=== PATIENT | female | born 1995 | race Caucasian/White ===

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

== ENCOUNTER 2017-06-03 18:02 | Inpatient (IN) | payer MEDICAID ==
[2017-06-03] MEDS ORDERED: Nalbuphine 10 MG/1 ML Vial IVPUSH PRN (18:28)
[2017-06-03] MEDS ORDERED: Sodium Chloride 0.9% 2.5 ML Syringe FLUSH PRN (18:28)
[2017-06-03] MEDS ORDERED: Misoprostol 200 MCG Tab PO PRN (18:28)
[2017-06-03] MEDS ORDERED: Carboprost Tromethamine 250 MCG/1 ML Amp IM PRN (18:28)
[2017-06-03] MEDS ORDERED: Water For Irrigation,Sterile 1,000 ML Container IRR PRN (18:28)
[2017-06-03] MEDS ORDERED: Methylergonovine 0.2 MG/1 ML Amp IM PRN (18:28)
[2017-06-03] MEDS ORDERED: Lidocaine 1% 50 ML MDV INJECT PRN (18:28)
[2017-06-03] MEDS ORDERED: Sodium Chloride 0.9% 10 ML Syringe FLUSH PRN (18:28)
[2017-06-03] MEDS ORDERED: Butorphanol 1 MG/ML SDV IVPUSH PRN (18:28)
[2017-06-03] MEDS ORDERED: Oxytocin/Lactated Ringers 30 UNIT/500 ML BAG IV SCH (18:30)
[2017-06-04] MEDS: Lactated Ringers 1,000 ML IV SCH ×3 (01:35→08:17)
--- NOTE | 2017-06-04 01:45 | PCM.PREANE ---
Preanesthetic Assessment - Anesthesia/Transfusion/Family Hx Anesthesia History: No Prior Anesthesia Transfusion History: No Prior Transfusion(s) - Review of Systems General: No Symptoms Pulmonary: No Symptoms Cardiovascular: No Symptoms Gastrointestinal: No Symptoms Neurological: No Symptoms Other: Reports: None - Physical Assessment Height: 1.7 m Weight: 107.955 kg ASA Class: 2 Mental Status: Alert & Oriented x3 Dentition: Reports: Normal Dentition ROM/Head Extension: Full Lungs: Clear to Auscultation, Normal Respiratory Effort Cardiovascular: Regular Rate, Regular Rhythm - Lab Values: Laboratory Last Values WBC 14.05 K/uL (4.0-11.0) H 06/03/17 18:45 RBC 4.63 M/uL (4.30-5.90) 06/03/17 18:45 Hgb 12.1 g/dL (12.0-16.0) 06/03/17 18:45 Hct 37.1 % (36.0-46.0) 06/03/17 18:45 MCV 80.1 fL (80.0-98.0) 06/03/17 18:45 MCH 26.1 pg (27.0-32.0) L 06/03/17 18:45 MCHC 32.6 g/dL (31.0-37.0) 06/03/17 18:45 RDW Std Deviation 44.9 fl (28.0-62.0) 06/03/17 18:45 RDW Coeff of Sean 16 % (11.0-15.0) H 06/03/17 18:45 Plt Count 247 K/uL (150-400) 06/03/17 18:45 MPV 10.80 fL (7.40-12.00) 06/03/17 18:45 Nucleated RBC % 0.0 /100WBC 06/03/17 18:45 Nucleated RBCs # 0 K/uL 06/03/17 18:45 Blood Type O POSITIVE 06/03/17 18:45 Antibody Screen NEGATIVE 06/03/17 18:45 - Allergies Allergies/Adverse Reactions: Allergies Allergy/AdvReac Type Severity Reaction Status Date / Time sulfamethoxazole Allergy Other Verified 05/11/17 18:29 [From Bactrim] trimethoprim [From Bactrim] Allergy Other Verified 05/11/17 18:29 - Blood Blood Available: Yes - Acknowledgements Anesthesia Type Planned: Epidural Pt an Appropriate Candidate for the Planned Anesthesia: Yes Alternatives and Risks of Anesthesia Discussed w Pt/Guardian: Yes Pt/Guardian Understands and Agrees with Anesthesia Plan: Yes PreAnesthesia Questionnaire - Past Health History Medical/Surgical History: Denies Medical/Surgical History HEENT History: Reports: Impaired Vision Cardiovascular History: Reports: None Respiratory History: Reports: Asthma Gastrointestinal History: Reports: Chronic Constipation, Irritable Bowel Syndrome Genitourinary History: Reports: UTI, Recurrent EVENING OR NIGHT NURSE SUPERVISOR History: Reports: : 1 Para: 0 Neurological History: Reports: Concussion, Migraines Psychiatric History: Reports: Anxiety, Depression (ADHD, Bipolar) Endocrine/Metabolic History: Reports: None Hematologic History: Reports: None - Infectious Disease History Infectious Disease History: Reports: Chicken Pox, Other (See Below) Other Infectious Disease History: hospitalized as a [age] year old for unkown strain of hepatitis - SUBSTANCE USE Smoking Status *Q: Never Smoker Second Hand Smoke Exposure: No Days Per Week of Alcohol Use: 0 Recreational Drug Use History: No - HOME MEDS Home Medications: Home Meds Albuterol Sulfate [Albuterol Sulfate HFA] 1 - 2 puff INH ASDIRECTED PRN [History] #103/Iron Fumarate/Fa [ ] 1 mg PO DAILY 12/19/16 [ History] Ranitidine [Zantac] 150 mg PO BID 05/11/17 [History] valACYclovir HCl [Valtrex] 1 tab PO DAILY 05/11/17 [History] - CURRENT (IN HOUSE) MEDS Current Meds: Current Medications Butorphanol Tartrate (Stadol) 1 mg IVPUSH Q1H PRN PRN Reason: Pain Last Admin: 06/04/17 00:43 Dose: 1 mg Carboprost Tromethamine (Hemabate Ds) 250 mcg IM ASDIRECTED PRN PRN Reason: Post Hemorrhage Lactated Ringer's (Ringers, Lactated) 1,000 mls @ 150 mls/hr IV ASDIRECTED ARNAV Last Admin: 06/04/17 01:35 Dose: 999 mls/hr Lidocaine HCl (Xylocaine 1%) 50 ml INJECT .ONCE PRN PRN Reason: Laceration repair Methylergonovine Maleate (Methergine) 0.2 mg IM ASDIRECTED PRN PRN Reason: Post Hemorrhage Misoprostol (Cytotec) 200 mcg PO .ONCE PRN PRN Reason: Post Hemorrhage Nalbuphine HCl (Nubain) 10 mg IVPUSH Q1H PRN PRN Reason: Pain (severe 7-10) Sodium Chloride (Saline Flush) 10 ml FLUSH ASDIRECTED PRN PRN Reason: Keep Vein Open Sodium Chloride (Saline Flush) 2.5 ml FLUSH ASDIRECTED PRN PRN Reason: Keep Vein Open Sterile Water (Sterile Water For Irrigation) 1,000 ml IRR ASDIRECTED PRN PRN Reason: delivery Discontinued Medications Oxytocin/Lactated Ringer's (Pitocin In Lr 30 Units/500 Ml) 30 unit in 500 mls @ 999 mls/hr IV TITRATE ARNAV; 999 MUNITS/MIN PRN Reason: Protocol Stop: 06/03/17 19:01
[2017-06-04] MEDS ORDERED: Ropivacaine HCl/PF 100 ML ONE ×2 (01:46→11:27)
[2017-06-04] MEDS ORDERED: fentaNYL 100 MCG/2 ML SDV ONE (01:46)
[2017-06-04] MEDS ORDERED: Terbutaline 1 MG/ML SDV SUBCUT PRN (02:21)
[2017-06-04] MEDS ORDERED: Oxytocin/Lactated Ringers 30 UNIT/500 ML BAG IV SCH (02:30)
[2017-06-04] MEDS: Ondansetron 4 MG/2 ML SDV IVPUSH PRN ×2 (08:18→12:33)
[2017-06-04] MEDS ORDERED: Albuterol 8 GM Inhaler INH PRN (13:20)
[2017-06-04] MEDS ORDERED: Acetaminophen 500 MG Tab PO PRN ×2 (14:52)
[2017-06-04] MEDS ORDERED: Ibuprofen 800 MG Tab PO PRN (14:52)
[2017-06-04] MEDS ORDERED: Bisacodyl 10 MG Supp RECTAL PRN (14:52)
[2017-06-04] MEDS ORDERED: Docusate Sodium 100 MG Cap PO PRN (14:52)
[2017-06-04] MEDS ORDERED: Ibuprofen 400 MG Tab PO PRN (14:52)
[2017-06-04] MEDS ORDERED: Witch Hazel Medicated Pads 40/Jar TOP PRN (14:52)
[2017-06-04] MEDS ORDERED: Benzocaine/Menthol 20%-0.5% Spray 78 GM Cannister TOP PRN (14:52)
[2017-06-04] MEDS ORDERED: Lanolin 100% Cream 7 GM Tube TOP PRN (14:52)
[2017-06-04] MEDS ORDERED: oxyCODONE 5 MG Tab PO PRN (14:52)
--- NOTE | 2017-06-05 00:07 | OR ---
SURGEON: Sade Miles MD DATE OF PROCEDURE: 06/04/2017 PREOPERATIVE DIAGNOSES: 1. Term at 38 weeks' and 4 days. 2. Premature rupture of membranes. 3. Polyhydramnios. POSTOPERATIVE DIAGNOSES: 1. Term at 38 weeks' and 4 days. 2. Premature rupture of membranes. 3. Polyhydramnios. 4. Delivered. PROCEDURES: 1. Induction of labor for premature rupture of membranes. 2. Spontaneous vaginal delivery. 3. Repair of second-degree perineal laceration. ANESTHESIA: Epidural. ESTIMATED BLOOD LOSS: 300 mL. DISPOSITION: Mother and baby stable in Labor and Delivery Room, bonding. FINDINGS: Female, weight 3750 g, score 3 and 8 at 1 and 5 minutes respectively. Grossly normal placenta with 3-vessel cord. Second-degree perineal laceration. Shoulder dystocia delivered with Kanika maneuver. BRIEF HISTORY: Keisha is a 22-year-old primigravida, who presented to Labor and Delivery at 1800hours on the 03 of June at 38 weeks' and 3 days gestation with a history of leakage of fluid, clear since 1730 hours. She reported having regular contractions, but denied vaginal bleeding and reported good movements. GBS status was negative. The patient's course was complicated with idiopathic polyhydramnios and surveillance has remained reassuring. On admission, she was found to be 2 cm dilated, 80% effaced, station -3. She was arturo irregularly and with a Category 1 tracing, she was allowed to ambulate. She was reexamined 4 hours later and found not to have made any cervical change. The patient reported at that time that her intensity of the contractions were increasing and she would like to wait another 2 hours to be reexamined to ascertain iff there was any cervical change within that interval. Two hours later when she was re-examined, she still had made any no cervical change and induction of labor was commenced with Oxytocin infusion. She requested and received epidural for pain management and made adequate progress. At a maximum of 14 milliunits per minute, she became fully dilated at about 11 a.m. and started complaining of increasing rectal pressure with a strong urge to push. She commenced active pushing at about 11:30 and after pushing for a little over 2 hours, she brought the baby's head down to a +4 station and was set up for delivery in modified dorsal lithotomy position. heart tracing although with high baseline of 160s, remained a category of 1 tracing. The patient remained afebrile throughout the intrapartum period. 30 minutes prior to delivery, the heart rate went up to 180s, CAT 2, consistent with uncomplicated tachycardia. DESCRIPTION OF PROCEDURE: She had a spontaneous vaginal delivery of a live female in direct occipital anterior position, clear fluid noted at delivery. Upon delivery of the infant's head, turtle sign was noted, and with restitution, spontaneous delivery of the infant's shoulders was not achieved. At this stage, the patient was placed in a supine position the head and she was placed in Kanika position. This enabled delivery of the anterior shoulder followed by the posterior shoulder, followed by the rest of the 's body. No nuchal cord was noted. The baby was delivered onto the maternal abdomen in the presence of the attendant nursery nurse. The baby was noted to have poor respiratory effort and tone. The cord was double clamped and cut and the infant was swiftly transferred to the resuscitator. Dr Scott, tail worker manager utilization review was closed. With delivery of the , oxytocin infusion was changed to titration rate for active management of the third stage of labor. Cord blood and gas samples were obtained. The placenta was delivered by controlled cord traction appeared to be complete and intact. Examination of the perineum revealed a second-degree laceration at 5 o'clock position. This was repaired with 2-0 Vicryl sutures in 3 layers. On re-examination of the perineum, there was a right labial laceration that was bleeding, this was reapproximated with 3-0 Vicryl suture. Both repairs were hemostatic. Uterine massage was performed. The fundus of the uterus was contracted, but on bimanual examination, clots were evacuated from the lower uterine segment, which remained boggy. Continued bimanual massage was performed vigorously and a dose of Methergine 0.2 mg was given IM. With these measures, the uterus contracted nicely and the bleeding reduced. The patient tolerated the procedure well. Sponge, instrument, and needle counts were correct. The infant transitioned well and was noted to be moving both arms. ADUMVIV / MODL /[id number] WALTER
--- NOTE | 2017-06-05 06:35 | PCM.PNPP ---
- General Info Date of Service: 06/05/17 Functional Status: Reports: Pain Controlled, Tolerating Diet, Ambulating, Urinating - Review of Systems General: Denies: Fever, Fatigue, Malaise, Chills Pulmonary: Denies: Shortness of Breath, Pleuritic Chest Pain, Cough Cardiovascular: Denies: Chest Pain, Palpitations, Dyspnea on Exertion Gastrointestinal: Denies: Abdominal Pain Genitourinary: Denies: Dysuria, Incontinence Neurological: Denies: Dizziness, Headache Psychiatric: Denies: Depression - General Info Date of Service: 06/05/17 - Patient Data Vital Signs - Most Recent: Last Vital Signs Temp 36.5 C 06/04/17 20:00 Pulse 93 06/04/17 20:00 Resp 18 06/04/17 20:00 BP 138/79 06/04/17 20:00 Pulse Ox 98 06/04/17 20:00 Weight - Most Recent: 238 lb Lab Results - Last 24 Hours: Laboratory Results - last 24 hr 06/05/17 Range/Units 04:50 Hgb 10.3 L (12.0-16.0) g/dL Hct 31.8 L (36.0-46.0) % Med Orders - Current: Current Medications Acetaminophen (Tylenol Extra Strength) 500 mg PO Q4H PRN PRN Reason: Pain Acetaminophen (Tylenol Extra Strength) 1,000 mg PO Q4H PRN PRN Reason: Pain Benzocaine/Menthol (Dermoplast Pain Relief 20%-0.5% [place]) 78 gm TOP ASDIRECTED PRN PRN Reason: Perineal Comfort Measure Last Admin: 06/04/17 17:52 Dose: 1 can Bisacodyl (Dulcolax) 10 mg RECTAL .ONCE PRN PRN Reason: Constipation Docusate Sodium (Colace) 100 mg PO BID PRN PRN Reason: Constipation Emollient Ointment (Lansinoh Hpa) 0 gm TOP ASDIRECTED PRN PRN Reason: Sore Nipples Ibuprofen (Motrin) 400 mg PO Q4H PRN PRN Reason: Pain Ibuprofen (Motrin) 800 mg PO Q6H PRN PRN Reason: Pain Last Admin: 06/04/17 17:53 Dose: 800 mg Oxycodone HCl (Oxycodone) 5 mg PO Q2H PRN PRN Reason: Pain Witch Lyssa (Tucks) 1 pad TOP ASDIRECTED PRN PRN Reason: comfort care Last Admin: 06/04/17 17:53 Dose: 1 tub Discontinued Medications Albuterol (Ventolin Hfa) 8 gm INH Q6H PRN PRN Reason: Other Butorphanol Tartrate (Stadol) 1 mg IVPUSH Q1H PRN PRN Reason: Pain Last Admin: 06/04/17 00:43 Dose: 1 mg Carboprost Tromethamine (Hemabate Ds) 250 mcg IM ASDIRECTED PRN PRN Reason: Post Hemorrhage Fentanyl (Sublimaze) Confirm Administered Dose 100 mcg .ROUTE .[employer] ONE Stop: 06/04/17 01:47 Lactated Ringer's (Ringers, Lactated) 1,000 mls @ 150 mls/hr IV ASDIRECTED ARNAV Last Admin: 06/04/17 08:17 Dose: 150 mls/hr Oxytocin/Lactated Ringer's (Pitocin In Lr 30 Units/500 Ml) 30 unit in 500 mls @ 999 mls/hr IV TITRATE ARNAV; 999 MUNITS/MIN PRN Reason: Protocol Stop: 06/03/17 19:01 Last Admin: 06/04/17 14:54 Dose: 150 munits/min, 150 mls/hr Ropivacaine (Naropin 0.2%) Confirm Administered Dose 100 mls @ as directed .ROUTE .[employer] ONE Stop: 06/04/17 01:47 Oxytocin/Lactated Ringer's (Pitocin In Lr 30 Units/500 Ml) 30 unit in 500 mls @ 2 mls/hr IV TITRATE ARNAV; 2 MUNITS/MIN PRN Reason: Protocol Last Titration: 06/04/17 06:50 Dose: 14 munits/min, 14 mls/hr Ropivacaine (Naropin 0.2%) Confirm Administered Dose 100 mls @ as directed .ROUTE .[employer] ONE Stop: 06/04/17 11:28 Lidocaine HCl (Xylocaine 1%) 50 ml INJECT .ONCE PRN PRN Reason: Laceration repair Methylergonovine Maleate (Methergine) 0.2 mg IM ASDIRECTED PRN PRN Reason: Post Hemorrhage Last Admin: 06/04/17 14:55 Dose: 0.2 mg Misoprostol (Cytotec) 200 mcg PO .ONCE PRN PRN Reason: Post Hemorrhage Nalbuphine HCl (Nubain) 10 mg IVPUSH Q1H PRN PRN Reason: Pain (severe 7-10) Ondansetron HCl (Zofran) 4 mg IVPUSH Q6H PRN PRN Reason: Nausea/Vomiting Last Admin: 06/04/17 12:33 Dose: 4 mg Sodium Chloride (Saline Flush) 10 ml FLUSH ASDIRECTED PRN PRN Reason: Keep Vein Open Sodium Chloride (Saline Flush) 2.5 ml FLUSH ASDIRECTED PRN PRN Reason: Keep Vein Open Sterile Water (Sterile Water For Irrigation) 1,000 ml IRR ASDIRECTED PRN PRN Reason: delivery Last Admin: 06/04/17 13:44 Dose: 1,000 ml Terbutaline Sulfate (Brethine) 0.25 mg SUBCUT ASDIRECTED PRN PRN Reason: Tacysystole - Infant Interaction Disposition, : at Bedside Interaction: Holding Feeding: Bottle Fed Infant Support Person: Mother, Significant Other - Recovery Exam Fundal Tone: Firm Fundal Level: 1 Fingerbreadths Below Umbilicus Fundal Placement: Midline Lochia Amount: Scant Lochia Color: Rubra/Red Episiotomy/Laceration: Approximated Bladder Status: Nonpalpable, Voiding Urinary Elimination: Voided - Exam General: Alert, Oriented HEENT: Pupils Equal Lungs: Clear to Auscultation, Normal Respiratory Effort Cardiovascular: Regular Rate, Regular Rhythm GI/Abdominal Exam: Soft, Non-Tender Extremities: Pedal Edema Skin: Warm Psy/Mental Status: Alert, Normal Affect, Normal Mood - Problem List & Annotations (1) Vaginal delivery SNOMED Code(s): 909800909 Code(s): O80 - ENCOUNTER FOR FULL-TERM UNCOMPLICATED DELIVERY Status: Acute Current Visit: Yes - Problem List Review Problem List Initiated/Reviewed/Updated: Yes - My Orders Last 24 Hours: My Active Orders 06/04/17 13:26 RT Post Treatment Assessment [RC] Click to Edit RT Pre-Treatment Assessment [RC] Click to Edit 06/04/17 14:52 Patient Status [ADT] Routine May Shower [RC] ASDIRECTED Up ad Laura [RC] ASDIRECTED Vital Signs [RC] PER UNIT ROUTINE Acetaminophen [Tylenol Extra Strength] 1,000 mg PO Q4H PRN Acetaminophen [Tylenol Extra Strength] 500 mg PO Q4H PRN Benzocaine/Menthol [Dermoplast Pain Relief 20%-0.5% [place]] 78 gm TOP ASDIRECTED PRN Bisacodyl [Dulcolax] 10 mg RECTAL .ONCE PRN Docusate Sodium [Colace] 100 mg PO BID PRN Ibuprofen [Motrin] 400 mg PO Q4H PRN Ibuprofen [Motrin] 800 mg PO Q6H PRN Lanolin [Lansinoh HPA] See Dose Instructions TOP ASDIRECTED PRN Witch Lyssa [Tucks] 1 pad TOP ASDIRECTED PRN oxyCODONE 5 mg PO Q2H PRN Assess Lochia [WOMSER] Per Unit Routine Assess Uterine Involution [WOMSER] Per Unit Routine Breast Pump [WOMSER] Per Unit Routine Peripheral IV Discontinue [OM.PC] Routine Resuscitation Status Routine 06/04/17 14:53 Perineal Care [OM.PC] Per Unit Routine 06/04/17 Dinner Regular Diet [DIET] - Assessment Assessment:: PPD#1 s/p , stable and afebrile - Plan Plan:: Patient may be discharged home today if baby is discharged by peds Discharge instructions were given Bleeding and infection precaution reviewed Nothing in the vagina for 6 weeks Continue PNV for 4 weeks Will restart Celexa for history of depression- discussed and reviewed S/S of worsening condition Follow up in 6 weeks
[2017-06-05] MEDS ORDERED: Hydrocortisone 2.5% Crm 30 GM Tube TOP PRN (15:35)
[2017-06-05] MEDS ORDERED: Lidocaine 2% Jelly 30 ML Tube MUCMEM SCH (15:45)
[2017-06-05 19:04] VITALS: BP 139/86
== END 2017-06-05 17:27 | disposition home or self-care (01) | DRG 775 ==
LOC: MW.OB 18:02 → MW.OBCHECK 18:02 → MW.OB 18:17 → MW.OBCHECK 18:17 → OBSVTOIN 06-04 13:44 → MW.OB 06-04 17:49
PROVIDERS: ADMIT Obstetrics & Gynecology; ATTEND Obstetrics & Gynecology
PROC: 10E0XZZ Delivery of Products of Conception, External Approach (ICD-10-PCS; principal; 2017-06-04)
PROC: 0KQM0ZZ Repair Perineum Muscle, Open Approach (ICD-10-PCS; 2017-06-04)
PROC: 3E033VJ Introduction of Other Hormone into Peripheral Vein, Percutaneous Approach (ICD-10-PCS; 2017-06-04)
DX: O42.02 Full-term premature rupture of membranes, onset of labor within 24 hours of rupture (principal); O40.3XX0 Polyhydramnios, third trimester, not applicable or unspecified; O70.1 Second degree perineal laceration during delivery; O66.0 Obstructed labor due to shoulder dystocia; Z3A.38 38 weeks gestation of pregnancy; Z37.0 Single live birth
CPT/HCPCS: 36415; 51703; 59025; 85014; 85018; 85027; 86850; 86900; 86901; 88307; A9270-GY; J0595; J2210; J2405; J2795; J3010; J7120

== ENCOUNTER 2017-08-21 14:49 | Emergency (ER) | payer MEDICAID ==
[2017-08-21] MEDS ORDERED: Sodium Chloride 0.9% 2.5 ML Syringe FLUSH PRN (15:42)
[2017-08-21] MEDS ORDERED: Sodium Chloride 0.9% 1,000 ML IV ONE (15:42)
[2017-08-21] MEDS ORDERED: Ondansetron 4 MG/2 ML SDV IVPUSH ONE (15:42)
[2017-08-21] MEDS ORDERED: Pantoprazole 40 MG in Sodium Chloride 0.9% 10 ML IVPUSH ONE (15:42)
[2017-08-21] MEDS ORDERED: Sodium Chloride 0.9% 10 ML Syringe FLUSH PRN (15:42)
[2017-08-21] MEDS ORDERED: Morphine 2 MG/ML Syringe IVPUSH ONE (15:43)
--- NOTE | 2017-08-21 15:47 | EDM.PDOC ---
ED HPI GENERAL MEDICAL PROBLEM - General Chief Complaint: Abdominal Pain Stated Complaint: ABD PAIN Time Seen by Provider: 08/21/17 15:06 - History of Present Illness INITIAL COMMENTS - FREE TEXT/NARRATIVE: HISTORY AND PHYSICAL: History of present illness: The patient is a 22-year-old female with a 2-1/2 month history of episodic epigastric and upper abdominal pain since she had her baby, which is not breast- feeding, and presents with complaints of right upper quadrant epigastric pain that started today after eating echo and she is. Patient says that she has eaten fatty foods over the last 2 days and it is triggered the pain associated with nausea but no vomiting. She did have one very loose stool today but that is not been characteristic. She has not had black or bloody stools and has had no fever chills chest pain or shortness of breath. Patient says she has an appointment with a provider at [facility] tomorrow to discuss these symptoms but the pain was severe and she thought she should be evaluated today. She's never had an ultrasound or any abdominal workup with the symptoms. Patient also says that she has a long-standing history of heartburn and burping has never had that evaluated either. The patient says that since she has arrived here the pain has improved significantly but she still has nausea. Patient says she last ate the macaroni and cheese approximately an hour and a half ago Review of systems: As per history of present illness and below otherwise all systems reviewed and negative. Past medical history: As per history of present illness and as reviewed below otherwise noncontributory. Surgical history: As per history of present illness and as reviewed below otherwise noncontributory. Social history: No reported history of drug or alcohol abuse. Family history: As per history of present illness and as reviewed below otherwise noncontributory. Physical exam: Gen.: Well-developed well-nourished overweight female who is nontoxic and vital signs been reviewed by me. HEENT: Atraumatic, normocephalic, negative for conjunctival pallor or scleral icterus, mucous membranes moist, throat clear, neck supple, nontender, trachea midline. Lungs: Clear to auscultation, breath sounds equal bilaterally, chest nontender. Heart: S1S2, regular, negative for clicks, rubs, or JVD. Abdomen: Soft, nondistended, nontender. On palpation I really don't elicit much tenderness throughout the abdomen except for some mild discomfort in the epigastrium. There are no masses no rebound no guarding and bowel sounds are hypoactive. There is no tympany on percussion. Negative for masses or hepatosplenomegaly. Negative for costovertebral tenderness. Pelvis: Stable nontender. Genitourinary: Deferred. Rectal: Deferred. Extremities: Atraumatic, negative for cords or calf pain. Neurovascular unremarkable. Neuro: Awake, alert, oriented. Cranial nerves II through XII unremarkable. Cerebellum unremarkable. Motor and sensory unremarkable throughout. Exam nonfocal. Diagnostics: CBC CMP amylase lipase UA UCG CT scan of the abdomen and pelvis I discussed with the patient that ultrasound would not be useful as she just ate an hour and a half ago and the gallbladder will be contracted Therapeutics: IV fluids Protonix Zofran morphine--- these note that the patient did not have a ride home so we canceled the morphine order Patient is aware of all testing results and the need to a low-fat diet and keep her appointment tomorrow at [facility] for referral. I advised her to try to get a referral for a surgery consult as soon as possible so that she can electively have her gallbladder removed. I will give her a small amount of tramadol to use for pain and advised her on reasons to return to the ED Impression: Biliary colic Definitive disposition and diagnosis as appropriate pending reevaluation and review of above. upper abdominal pain Pain Score (Numeric/FACES): 9 - Related Data Allergies Allergy/AdvReac Type Severity Reaction Status Date / Time dipti Allergy Other Verified 08/21/17 15:13 sulfamethoxazole Allergy Other Verified 08/21/17 15:13 [From Bactrim] trimethoprim [From Bactrim] Allergy Other Verified 08/21/17 15:13 Home Meds: Home Meds Citalopram Hydrobromide [Celexa] 40 mg PO DAILY 08/21/17 [History] Past Medical History - Past Health History Medical/Surgical History: Denies Medical/Surgical History HEENT History: Reports: Impaired Vision Cardiovascular History: Reports: None Respiratory History: Reports: Asthma Gastrointestinal History: Reports: Chronic Constipation, Irritable Bowel Syndrome Genitourinary History: Reports: UTI, Recurrent 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: Neurological History: Reports: Concussion, Migraines Psychiatric History: Reports: Anxiety, Depression Endocrine/Metabolic History: Reports: None Hematologic History: Reports: None - Infectious Disease History Infectious Disease History: Reports: Chicken Pox, Other (See Below) Other Infectious Disease History: hospitalized as a [age] year old for unkown strain of hepatitis Social & Family History - Family History Family Medical History: Noncontributory Cardiac: Reports: Hypertension, [place], Stent : Reports: Diabetic Nephropathy Neurological: Reports: CVA, Neuropathy, Diabetic Psychiatric: Reports: ADD, ADHD, Anxiety, Bipolar, Depression, Emotional Problems, Learning Disability, Mood Swings, Panic Attack Endocrine/Metabolic: Reports: Diabetes, Type I Oncologic: Reports: Colon, Leukemia - Tobacco Use Smoking Status *Q: Never Smoker Second Hand Smoke Exposure: No - Caffeine Use Caffeine Use: Reports: Energy Drinks, Soda - Alcohol Use Days Per Week of Alcohol Use: 0 - Recreational Drug Use Recreational Drug Use: No ED ROS GENERAL - Review of Systems Review Of Systems: ROS reveals no pertinent complaints other than HPI. ED EXAM, GENERAL - Physical Exam Exam: See Below (See dictation) Course - Vital Signs Last Recorded V/S: Last Vital Signs Temp 36.7 C 08/21/17 15:13 Pulse 78 08/21/17 15:13 Resp 18 08/21/17 15:13 BP 152/101 H 08/21/17 15:13 Pulse Ox 99 08/21/17 15:13 - Orders/Labs/Meds Orders: Active Orders 24 hr Category Date Time Status Abdomen Pelvis w Cont [CT] Stat Exams 08/21/17 15:42 Taken Sodium Chloride 0.9% [Saline Flush] Med 08/21/17 15:42 Active 10 ml FLUSH ASDIRECTED PRN Sodium Chloride 0.9% [Saline Flush] Med 08/21/17 15:42 Active 2.5 ml FLUSH ASDIRECTED PRN Saline Lock Insert [OM.PC] Stat Oth 08/21/17 15:41 Ordered Medication Orders Sodium Chloride (Saline Flush) 10 ml FLUSH ASDIRECTED PRN PRN Reason: Keep Vein Open Last Admin: 08/21/17 16:13 Dose: 10 ml Sodium Chloride (Saline Flush) 2.5 ml FLUSH ASDIRECTED PRN PRN Reason: Keep Vein Open Last Admin: 08/21/17 16:14 Dose: 2.5 ml Labs: Laboratory Tests 08/21/17 08/21/17 08/21/17 Range/Units 15:48 15:48 16:36 WBC 6.80 (4.0-11.0) K/uL RBC 4.42 (4.30-5.90) M/uL Hgb 11.0 L (12.0-16.0) g/dL Hct 35.3 L (36.0-46.0) % MCV 79.9 L (80.0-98.0) fL MCH 24.9 L (27.0-32.0) pg MCHC 31.2 (31.0-37.0) g/dL RDW Std Deviation 45.7 (28.0-62.0) fl RDW Coeff of Sean 16 H (11.0-15.0) % Plt Count 236 (150-400) K/uL MPV 9.80 (7.40-12.00) fL Neut % (Auto) 70.3 (48.0-80.0) % Lymph % (Auto) 21.8 (16.0-40.0) % [place] % (Auto) 6.0 (0.0-15.0) % Eos % (Auto) 1.5 (0.0-7.0) % Baso % (Auto) 0.4 (0.0-1.5) % Neut # (Auto) 4.8 (1.4-5.7) K/uL Lymph # (Auto) 1.5 (0.6-2.4) K/uL [place] # (Auto) 0.4 (0.0-0.8) K/uL Eos # (Auto) 0.1 (0.0-0.7) K/uL Baso # (Auto) 0.0 (0.0-0.1) K/uL Nucleated RBC % 0.0 /100WBC Nucleated RBCs # 0 K/uL Sodium 141 (136-146) mmol/L Potassium 3.6 (3.5-5.1) mmol/L Chloride 110 (98-110) mmol/L Carbon Dioxide 23 (21-31) mmol/L BUN 11 (6.0-23.0) mg/dL Creatinine 0.7 (0.6-1.5) mg/dL Est Cr Clr Drug Dosing 129.32 mL/min Estimated GFR (MDRD) > 60.0 ml/min Glucose 139 H (60-110) mg/dL Calcium 8.7 L (8.8-10.8) mg/dL Total Bilirubin 0.3 (0.1-1.5) mg/dL AST 31 (5-40) IU/L ALT 54 (8-54) IU/L Alkaline Phosphatase 91 (40-150) Total Protein 6.8 (6.0-8.0) g/dL Albumin 3.9 (3.5-5.0) g/dL Globulin 2.9 (2.0-3.5) g/dL Albumin/Globulin Ratio 1.3 (1.3-2.8) Amylase 34 (10-90) U/L Lipase 29 (7-80) U/L Urine Color Urine Appearance Urine pH (5.0-8.0) Ur Specific [place] (1.001-1.035) Urine Protein (NEGATIVE) mg/dL Urine Glucose (UA) (NEGATIVE) mg/dL Urine Ketones (NEGATIVE) mg/dL Urine Occult Blood (NEGATIVE) Urine Nitrite (NEGATIVE) Urine Bilirubin (NEGATIVE) Urine Urobilinogen (<2.0) EU/dL Ur Leukocyte Esterase (NEGATIVE) Urine RBC (0-2/HPF) Urine WBC (0-5/HPF) Ur Epithelial Cells (NONE-FEW) Amorphous Sediment (NEGATIVE) Urine Bacteria (NEGATIVE) Urine Mucus (NONE-MOD) Urine HCG, Qual NEGATIVE (NEGATIVE) 08/21/17 Range/Units 16:36 WBC (4.0-11.0) K/uL RBC (4.30-5.90) M/uL Hgb (12.0-16.0) g/dL Hct (36.0-46.0) % MCV (80.0-98.0) fL MCH (27.0-32.0) pg MCHC (31.0-37.0) g/dL RDW Std Deviation (28.0-62.0) fl RDW Coeff of Sean (11.0-15.0) % Plt Count (150-400) K/uL MPV (7.40-12.00) fL Neut % (Auto) (48.0-80.0) % Lymph % (Auto) (16.0-40.0) % [place] % (Auto) (0.0-15.0) % Eos % (Auto) (0.0-7.0) % Baso % (Auto) (0.0-1.5) % Neut # (Auto) (1.4-5.7) K/uL Lymph # (Auto) (0.6-2.4) K/uL [place] # (Auto) (0.0-0.8) K/uL Eos # (Auto) (0.0-0.7) K/uL Baso # (Auto) (0.0-0.1) K/uL Nucleated RBC % /100WBC Nucleated RBCs # K/uL Sodium (136-146) mmol/L Potassium (3.5-5.1) mmol/L Chloride (98-110) mmol/L Carbon Dioxide (21-31) mmol/L BUN (6.0-23.0) mg/dL Creatinine (0.6-1.5) mg/dL Est Cr Clr Drug Dosing mL/min Estimated GFR (MDRD) ml/min Glucose (60-110) mg/dL Calcium (8.8-10.8) mg/dL Total Bilirubin (0.1-1.5) mg/dL AST (5-40) IU/L ALT (8-54) IU/L Alkaline Phosphatase (40-150) Total Protein (6.0-8.0) g/dL Albumin (3.5-5.0) g/dL Globulin (2.0-3.5) g/dL Albumin/Globulin Ratio (1.3-2.8) Amylase (10-90) U/L Lipase (7-80) U/L Urine Color YELLOW Urine Appearance SLT CLOUDY Urine pH 7.0 (5.0-8.0) Ur Specific [place] 1.025 (1.001-1.035) Urine Protein NEGATIVE (NEGATIVE) mg/dL Urine Glucose (UA) NEGATIVE (NEGATIVE) mg/dL Urine Ketones NEGATIVE (NEGATIVE) mg/dL Urine Occult Blood TRACE-INTACT (NEGATIVE) Urine Nitrite NEGATIVE (NEGATIVE) Urine Bilirubin NEGATIVE (NEGATIVE) Urine Urobilinogen 0.2 (<2.0) EU/dL Ur Leukocyte Esterase NEGATIVE (NEGATIVE) Urine RBC 2-4 (0-2/HPF) Urine WBC 2-3 (0-5/HPF) Ur Epithelial Cells FEW (NONE-FEW) Amorphous Sediment LIGHT (NEGATIVE) Urine Bacteria 1+ H (NEGATIVE) Urine Mucus HEAVY (NONE-MOD) Urine HCG, Qual (NEGATIVE) Meds: Medications Generic Name Dose Route Start Last Admin Trade Name Freq PRN Reason Stop Dose Admin Sodium Chloride 10 ml 08/21/17 15:42 08/21/17 16:13 Saline Flush FLUSH 10 ml ASDIRECTED PRN Administration Keep Vein Open Sodium Chloride 2.5 ml 08/21/17 15:42 08/21/17 16:14 Saline Flush FLUSH 2.5 ml ASDIRECTED PRN Administration Keep Vein Open Discontinued Medications Generic Name Dose Route Start Last Admin Trade Name Freq PRN Reason Stop Dose Admin Pantoprazole Sodium 40 mg/ 10 mls @ 300 mls/hr 08/21/17 15:42 08/21/17 16:13 Sodium Chloride IVPUSH 08/21/17 15:43 300 mls/hr NOW ONE Administration Sodium Chloride 1,000 mls @ 999 mls/hr 08/21/17 15:42 08/21/17 16:13 Normal Saline IV 08/21/17 16:42 999 mls/hr STAT ONE Administration Iopamidol 90 ml 08/21/17 16:51 08/21/17 16:52 Isovue Multipack-370 (76%) IVPUSH 08/21/17 16:52 90 ml ONETIME STA Administration Morphine Sulfate 2 mg 08/21/17 15:43 08/21/17 16:14 Morphine IVPUSH 08/21/17 15:44 Not Given ONETIME ONE Ondansetron HCl 4 mg 08/21/17 15:42 08/21/17 16:13 Zofran IVPUSH 08/21/17 15:43 4 mg ONETIME ONE Administration Departure - Departure Time of Disposition: 18:22 Disposition: Home, Self-Care 01 Condition: Good Clinical Impression: Biliary colic - Discharge Information Referrals: Zonia Kwok DO [Primary Care Provider] - Forms: ED Department Discharge Additional Instructions: The following information is given to patients seen in the emergency department who are being discharged to home. This information is to outline your options for follow-up care. We provide all patients seen in our emergency department with a follow-up referral. The need for follow-up, as well as the timing and circumstances, are variable depending upon the specifics of your emergency department visit. If you don't have a primary care physician on staff, we will provide you with a referral. We always advise you to contact your personal physician following an emergency department visit to inform them of the circumstance of the visit and for follow-up with them and/or the need for any referrals to a consulting specialist. The emergency department will also refer you to a specialist when appropriate. This referral assures that you have the opportunity for followup care with a specialist. All of these measure are taken in an effort to provide you with optimal care, which includes your followup. Under all circumstances we always encourage you to contact your private physician who remains a resource for coordinating your care. When calling for followup care, please make the office aware that this follow-up is from your recent emergency room visit. If for any reason you are refused follow-up, please contact the [facility] emergency department at and ask to speak to the emergency department charge nurse. [address] [place] [address] [facility] [address] [place] [phone] Please keep your appointment as scheduled tomorrow with Dr. Kwok in the clinic and also call our surgery clinic for follow-up as you choose. Please eat a low-fat diet as we discussed push hydration and only use the pain medications prescribed if the pain is not treated with [id number] meds. You've been given tramadol [facility]. Return to ER as needed and as discussed - My Orders Last 24 Hours: My Active Orders 08/21/17 15:41 Saline Lock Insert [OM.PC] Stat 08/21/17 15:42 Abdomen Pelvis w Cont [CT] Stat Sodium Chloride 0.9% [Saline Flush] 10 ml FLUSH ASDIRECTED PRN Sodium Chloride 0.9% [Saline Flush] 2.5 ml FLUSH ASDIRECTED PRN - Assessment/Plan Last 24 Hours: My Active Orders 08/21/17 15:41 Saline Lock Insert [OM.PC] Stat 08/21/17 15:42 Abdomen Pelvis w Cont [CT] Stat Sodium Chloride 0.9% [Saline Flush] 10 ml FLUSH ASDIRECTED PRN Sodium Chloride 0.9% [Saline Flush] 2.5 ml FLUSH ASDIRECTED PRN
[2017-08-21 16:19] LABS: CHLORIDE,CL 110 mmol/L (98-110); SODIUM,NA 141 mmol/L (136-146)
[2017-08-21] MEDS ORDERED: Iopamidol 755 MG/ML 500 ML Multipack Bottle IVPUSH STA (16:51)
[2017-08-21 18:46] VITALS: BP 121/79
--- NOTE | 2017-08-22 16:17 | CT ---
EXAM DATE: 08/21/17 PATIENT'S AGE: 22 Patient: TASIA PALM Facility: [place], [place] Site . Site : 1995 Study: CT Abdomen/Pelvis [id number]/12/2017 5:12:29 PM Ordering Physician: Angel Clayton Final Report: INDICATION: Right-sided abdominal pain for 2 months. Pain is worse today. Technique: CT abdomen and pelvis performed after IV injection of contrast. Findings: Linear atelectasis in the left lung base. Trace amount of pericardial fluid. Slight increased density in the dependent aspect the gallbladder could be related to stone debris and/or sludge. Mild diffuse fatty infiltration of the liver. Small cyst right lower kidney. Appendix is normal. Small cysts or follicles in both ovaries. Few scattered colonic diverticula. Remainder negative. Impression: 1. No acute disease in abdomen or pelvis. 2. Small amount of sludge or stone debris in the dependent aspect of the gallbladder. Other findings as above. Please note that all CT scans at this facility use dose modulation, iterative reconstruction, and/or weight-based dosing when appropriate to reduce radiation dose to as low as reasonably achievable. Dictated by Julio Garces MD @ Aug 21 2017 5:37PM (Electronic Signature) Report Signed by Proxy. WALTER
== END 2017-08-21 18:42 | disposition home or self-care (01) ==
LOC: MW.ED 14:49
DX: K80.50 Calculus of bile duct without cholangitis or cholecystitis without obstruction (principal); Z88.2 Allergy status to sulfonamides; Z88.1 Allergy status to other antibiotic agents
CPT/HCPCS: 36415; 74177; 80053; 81001; 81025; 82150; 83690; 85025; 96361; 96374; 96375; 99284; C9113; J2405; J7040; Q9967; 99283

== ENCOUNTER 2017-09-21 16:05 | Emergency (ER) | payer MEDICAID ==
[2017-09-21] MEDS ORDERED: Ondansetron 4 MG/2 ML SDV IVPUSH ONE (16:44)
[2017-09-21] MEDS ORDERED: Sodium Chloride 0.9% 1,000 ML IV ONE (16:44)
[2017-09-21] MEDS ORDERED: Morphine 4 MG/ML Syringe IVPUSH ONE (16:44)
--- NOTE | 2017-09-21 16:50 | EDM.PDOC ---
ED HPI GENERAL MEDICAL PROBLEM - General Chief Complaint: Gastrointestinal Problem Stated Complaint: abdominal pain Time Seen by Provider: 09/21/17 16:25 Source of Information: Reports: Patient History Limitations: Reports: No Limitations - History of Present Illness INITIAL COMMENTS - FREE TEXT/NARRATIVE: HISTORY AND PHYSICAL: History of present illness: Patient is a 22-year-old female who presents to the emergency room with complaints of right upper abdominal pain, nausea, vomiting, and diarrhea. She states she has been having this abdominal pain on and off for approximately 3 months, since giving to her daughter. She was seen in the emergency room approximately 3 weeks ago and diagnosed a "bad gallbladder". At that time she was prescribed tramadol and given a follow-up appointment with Dr. Reed in [place]. She did see Dr. Monique approximately 2 weeks ago and is scheduled to have her gallbladder removed in October. She has chosen to wait to have the surgery as she does not have help at home with her . States today she took her tramadol and did not have any pain relief. Proceeded to take some Aleve, also did not have any comfort. She had leftover Zofran from her which has not alleviated any of her nausea. Patient had a vaginal delivery approximately 3 months ago, no complications. Is not breast-feeding. Currently on the Depakote shot for prevention. Unsure of last menstrual period due to this. Review of systems: As per history of present illness and below otherwise all systems reviewed and negative. Past medical history: As per history of present illness and as reviewed below otherwise noncontributory. Surgical history: As per history of present illness and as reviewed below otherwise noncontributory. Social history: No reported history of drug or alcohol abuse. Family history: As per history of present illness and as reviewed below otherwise noncontributory. Physical exam: Gen.: Well-developed and well-nourished 22-year-old female. Appears in no acute distress and is nontoxic appearing. Alert and oriented. HEENT: Atraumatic, normocephalic, pupils reactive, negative for conjunctival pallor or scleral icterus, mucous membranes moist, throat clear, neck supple, nontender, trachea midline. Lungs: Clear to auscultation, breath sounds equal bilaterally, chest nontender. Heart: S1S2, regular rate and rhythm no overt murmurs Abdomen: Soft, nondistended, generalized tenderness in all 4 quadrants-worse in the right upper quadrant. Negative for masses or hepatosplenomegaly. Negative for costovertebral tenderness. Pelvis: Stable nontender. Genitourinary: Deferred. Rectal: Deferred. Extremities: Atraumatic, ambulatory, moves all extremities per self, full range of motion. Patient is negative for cords or calf pain. Neurovascular unremarkable. Neuro: Awake, alert, oriented. Cranial nerves II through XII unremarkable. Cerebellum unremarkable. Motor and sensory unremarkable throughout. Exam nonfocal. The patient states that this pain is not a new pain. Is consistent with the gallbladder "attacks" that she has been having for the past several weeks. We did discuss repeating imaging, both the patient and myself decided that this is not necessary at this time. I will repeat labs to make sure there is nothing further going on. Patient is requesting IV fluids as she states she has been vomiting throughout the day. Will provide IV hydration and give pain management and nausea medication. Labs were reviewed with the patient. We did discuss that she needs to follow-up with her general surgeon for further management of her cholecystitis. I will give her a limited amount of [place] 02/09/25, one tab every 4-6 hours as needed. As she is taking care of the infant at home we did discuss when to use this medication. It is her narcotic and can make her drowsy she is aware that she needs to take this when someone is able to help care for the child. Zofran has been prescribed as well that she can take for nausea. She will expedite her appointment with her general surgeon in [place]. Denies any further questions at this time. Diagnostics: CBC, CMP, amylase, lipase, UA, urine Therapeutics: IV fluid, Zofran, morphine Impression: 1. You may continue to take her tramadol as needed. A prescription for [place] has been prescribed for you. This is a narcotic and will make you drowsy. Do not take this medication when needing to care for your small , driving, or functioning at work. Zofran has also been prescribed to help with the nausea. 2. Will and diet as tolerated. Please avoid any of your trigger foods that may cause her gallbladder to flare. 3. Please call your general surgeon to expedite your follow-up appointment. 4. Return to the ED as needed and as discussed. Plan: [] Definitive disposition and diagnosis as appropriate pending reevaluation and review of above. Onset: Other (An ongoing for 3 months, worse today.) Location: Reports: Abdomen Associated Symptoms: Reports: Nausea/Vomiting, Other (Diarrhea) right upper quad Pain Score (Numeric/FACES): 6 - Related Data Allergies Allergy/AdvReac Type Severity Reaction Status Date / Time dipti Allergy Other Verified 09/21/17 17:05 sulfamethoxazole Allergy Other Verified 09/21/17 17:05 [From Bactrim] trimethoprim [From Bactrim] Allergy Other Verified 09/21/17 17:05 Home Meds: Home Meds Citalopram Hydrobromide [Celexa] 40 mg PO DAILY 08/21/17 [History] Past Medical History - Past Health History Medical/Surgical History: Denies Medical/Surgical History HEENT History: Reports: Impaired Vision Cardiovascular History: Reports: None Respiratory History: Reports: Asthma Gastrointestinal History: Reports: Chronic Constipation, Irritable Bowel Syndrome Genitourinary History: Reports: UTI, Recurrent [employer] History: Reports: Neurological History: Reports: Concussion, Migraines Psychiatric History: Reports: Anxiety, Depression Endocrine/Metabolic History: Reports: None Hematologic History: Reports: None - Infectious Disease History Infectious Disease History: Reports: Chicken Pox, Other (See Below) Other Infectious Disease History: hospitalized as a [age] year old for unkown strain of hepatitis Social & Family History - Family History Family Medical History: Noncontributory Cardiac: Reports: Hypertension, [place], Stent : Reports: Diabetic Nephropathy Neurological: Reports: CVA, Neuropathy, Diabetic Psychiatric: Reports: ADD, ADHD, Anxiety, Bipolar, Depression, Emotional Problems, Learning Disability, Mood Swings, Panic Attack Endocrine/Metabolic: Reports: Diabetes, Type I Oncologic: Reports: Colon, Leukemia - Tobacco Use Smoking Status *Q: Never Smoker Second Hand Smoke Exposure: No - Caffeine Use Caffeine Use: Reports: Energy Drinks, Soda - Alcohol Use Days Per Week of Alcohol Use: 0 - Recreational Drug Use Recreational Drug Use: No ED ROS GENERAL - Review of Systems Review Of Systems: ROS reveals no pertinent complaints other than HPI. ED EXAM, GI/ABD - Physical Exam Exam: See Below (See dictation) Course - Vital Signs Last Recorded V/S: Last Vital Signs Temp 98.0 F 09/21/17 17:05 Pulse 100 09/21/17 17:05 Resp 18 09/21/17 17:05 BP 125/83 09/21/17 17:05 Pulse Ox 97 09/21/17 17:05 - Orders/Labs/Meds Labs: Laboratory Tests 09/21/17 09/21/17 09/21/17 Range/Units 16:57 16:57 18:17 WBC 10.15 (4.0-11.0) K/uL RBC 5.17 (4.30-5.90) M/uL Hgb 13.0 (12.0-16.0) g/dL Hct 40.8 (36.0-46.0) % MCV 78.9 L (80.0-98.0) fL MCH 25.1 L (27.0-32.0) pg MCHC 31.9 (31.0-37.0) g/dL RDW Std Deviation 43.5 (28.0-62.0) fl RDW Coeff of Sean 15 (11.0-15.0) % Plt Count 253 (150-400) K/uL MPV 10.50 (7.40-12.00) fL Neut % (Auto) 86.3 H (48.0-80.0) % Lymph % (Auto) 6.2 L (16.0-40.0) % Cavalier % (Auto) 7.3 (0.0-15.0) % Eos % (Auto) 0.1 (0.0-7.0) % Baso % (Auto) 0.1 (0.0-1.5) % Neut # (Auto) 8.8 H (1.4-5.7) K/uL Lymph # (Auto) 0.6 (0.6-2.4) K/uL Cavalier # (Auto) 0.7 (0.0-0.8) K/uL Eos # (Auto) 0.0 (0.0-0.7) K/uL Baso # (Auto) 0.0 (0.0-0.1) K/uL Nucleated RBC % 0.0 /100WBC Nucleated RBCs # 0 K/uL Sodium 142 (136-146) mmol/L Potassium 3.4 L (3.5-5.1) mmol/L Chloride 108 (98-110) mmol/L Carbon Dioxide 22 (21-31) mmol/L BUN 15 (6.0-23.0) mg/dL Creatinine 0.9 (0.6-1.5) mg/dL Est Cr Clr Drug Dosing 100.58 mL/min Estimated GFR (MDRD) > 60.0 ml/min Glucose 122 H (60-110) mg/dL Calcium 9.2 (8.8-10.8) mg/dL Total Bilirubin 0.8 (0.1-1.5) mg/dL AST 29 (5-40) IU/L ALT 59 H (8-54) IU/L Alkaline Phosphatase 90 (40-150) Total Protein 8.1 H (6.0-8.0) g/dL Albumin 4.4 (3.5-5.0) g/dL Globulin 3.7 H (2.0-3.5) g/dL Albumin/Globulin Ratio 1.2 L (1.3-2.8) Amylase 26 (10-90) U/L Lipase 14 (7-80) U/L Urine Color Urine Appearance Urine pH (5.0-8.0) Ur Specific Erie (1.001-1.035) Urine Protein (NEGATIVE) mg/dL Urine Glucose (UA) (NEGATIVE) mg/dL Urine Ketones (NEGATIVE) mg/dL Urine Occult Blood (NEGATIVE) Urine Nitrite (NEGATIVE) Urine Bilirubin (NEGATIVE) Urine Urobilinogen (<2.0) EU/dL Ur Leukocyte Esterase (NEGATIVE) Urine RBC (0-2/HPF) Urine WBC (0-5/HPF) Ur Epithelial Cells (NONE-FEW) Amorphous Sediment (NEGATIVE) Urine Bacteria (NEGATIVE) Urine HCG, Qual NEGATIVE (NEGATIVE) 09/21/17 Range/Units 18:17 WBC (4.0-11.0) K/uL RBC (4.30-5.90) M/uL Hgb (12.0-16.0) g/dL Hct (36.0-46.0) % MCV (80.0-98.0) fL MCH (27.0-32.0) pg MCHC (31.0-37.0) g/dL RDW Std Deviation (28.0-62.0) fl RDW Coeff of Sean (11.0-15.0) % Plt Count (150-400) K/uL MPV (7.40-12.00) fL Neut % (Auto) (48.0-80.0) % Lymph % (Auto) (16.0-40.0) % Cavalier % (Auto) (0.0-15.0) % Eos % (Auto) (0.0-7.0) % Baso % (Auto) (0.0-1.5) % Neut # (Auto) (1.4-5.7) K/uL Lymph # (Auto) (0.6-2.4) K/uL Cavalier # (Auto) (0.0-0.8) K/uL Eos # (Auto) (0.0-0.7) K/uL Baso # (Auto) (0.0-0.1) K/uL Nucleated RBC % /100WBC Nucleated RBCs # K/uL Sodium (136-146) mmol/L Potassium (3.5-5.1) mmol/L Chloride (98-110) mmol/L Carbon Dioxide (21-31) mmol/L BUN (6.0-23.0) mg/dL Creatinine (0.6-1.5) mg/dL Est Cr Clr Drug Dosing mL/min Estimated GFR (MDRD) ml/min Glucose (60-110) mg/dL Calcium (8.8-10.8) mg/dL Total Bilirubin (0.1-1.5) mg/dL AST (5-40) IU/L ALT (8-54) IU/L Alkaline Phosphatase (40-150) Total Protein (6.0-8.0) g/dL Albumin (3.5-5.0) g/dL Globulin (2.0-3.5) g/dL Albumin/Globulin Ratio (1.3-2.8) Amylase (10-90) U/L Lipase (7-80) U/L Urine Color YELLOW Urine Appearance CLEAR Urine pH 5.5 (5.0-8.0) Ur Specific Erie 1.020 (1.001-1.035) Urine Protein NEGATIVE (NEGATIVE) mg/dL Urine Glucose (UA) NEGATIVE (NEGATIVE) mg/dL Urine Ketones NEGATIVE (NEGATIVE) mg/dL Urine Occult Blood TRACE-LYSED (NEGATIVE) Urine Nitrite NEGATIVE (NEGATIVE) Urine Bilirubin NEGATIVE (NEGATIVE) Urine Urobilinogen 0.2 (<2.0) EU/dL Ur Leukocyte Esterase NEGATIVE (NEGATIVE) Urine RBC 1-2 (0-2/HPF) Urine WBC 0-1 (0-5/HPF) Ur Epithelial Cells FEW (NONE-FEW) Amorphous Sediment FEW (NEGATIVE) Urine Bacteria RARE (NEGATIVE) Urine HCG, Qual (NEGATIVE) Meds: Medications Discontinued Medications Generic Name Dose Route Start Last Admin Trade Name Janq PRN Reason Stop Dose Admin Sodium Chloride 1,000 mls @ 999 mls/hr 09/21/17 16:44 09/21/17 16:59 Normal Saline IV 09/21/17 17:44 999 mls/hr STAT ONE Administration Morphine Sulfate 4 mg 09/21/17 16:44 09/21/17 16:59 Morphine IVPUSH 09/21/17 16:45 4 mg ONETIME ONE Administration Ondansetron HCl 4 mg 09/21/17 16:44 09/21/17 16:59 Zofran IVPUSH 09/21/17 16:45 4 mg ONETIME ONE Administration Potassium Chloride 10 meq 09/21/17 18:11 09/21/17 18:38 Klor-Con 10 PO 09/21/17 18:12 Not Given ONETIME ONE Potassium Chloride 10 meq 09/21/17 18:37 09/21/17 18:41 Klor-Con M20 PO 09/21/17 18:38 10 meq ONETIME ONE Administration Promethazine HCl 25 mg 09/21/17 18:47 09/21/17 19:05 Phenergan IM 09/21/17 18:48 25 mg ONETIME ONE Administration Departure - Departure Time of Disposition: 19:19 Disposition: Home, Self-Care 01 Clinical Impression: History of cholecystitis Abdominal pain Qualifiers: Abdominal location: right upper quadrant Qualified Code(s): R10.11 - Right upper quadrant pain - Discharge Information Referrals: Zonia Kwok DO [Primary Care Provider] - Forms: ED Department Discharge Additional Instructions: My general discharge The following information is given to patients seen in the emergency department who are being discharged to home. This information is to outline your options for follow-up care. We provide all patients seen in our emergency department with a follow-up referral. The need for follow-up, as well as the timing and circumstances, are variable depending upon the specifics of your emergency department visit. If you don't have a primary care physician on staff, we will provide you with a referral. We always advise you to contact your personal physician following an emergency department visit to inform them of the circumstance of the visit and for follow-up with them and/or the need for any referrals to a consulting specialist. The emergency department will also refer you to a specialist when appropriate. This referral assures that you have the opportunity for follow-up care with a specialist. All of these measure are taken in an effort to provide you with optimal care, which includes your follow-up. Under all circumstances we always encourage you to contact your private physician who remains a resource for coordinating your care. When calling for follow-up care, please make the office aware that this follow-up is from your recent emergency room visit. If for any reason you are refused follow-up, please contact the [facility] Emergency Department at and asked to speak to the emergency department charge nurse. [facility] - General Surgery Professional Building [address] [place] [address], [address] [place] [address] 1. You may continue to take her tramadol as needed. A prescription for [place] has been prescribed for you. This is a narcotic and will make you drowsy. Do not take this medication when needing to care for your small , driving, or functioning at work. Zofran has also been prescribed to help with the nausea. 2. Will and diet as tolerated. Please avoid any of your trigger foods that may cause her gallbladder to flare. 3. Please call your general surgeon to expedite your follow-up appointment. 4. Return to the ED as needed and as discussed.
[2017-09-21 17:32] LABS: CHLORIDE,CL 108 mmol/L (98-110); SODIUM,NA 142 mmol/L (136-146)
[2017-09-21] MEDS ORDERED: Potassium Chloride 10 MEQ Tab.ER PO ONE (18:11)
[2017-09-21] MEDS ORDERED: Potassium Chloride 20 MEQ Tab.ER PO ONE (18:37)
[2017-09-21] MEDS ORDERED: Promethazine 25 MG/ML SDV IM ONE (18:47)
[2017-09-21 19:42] VITALS: BP 130/88
== END 2017-09-21 19:40 | disposition home or self-care (01) ==
LOC: MW.ED 16:05
DX: R10.11 Right upper quadrant pain (principal); Z88.2 Allergy status to sulfonamides; Z88.1 Allergy status to other antibiotic agents; Z79.899 Other long term (current) drug therapy; Z87.19 Personal history of other diseases of the digestive system; Z91.018 Allergy to other foods
CPT/HCPCS: 36415; 80053; 81001; 81025; 82150; 83690; 85025; 96361; 96372; 96374; 96375; 99284; A9270; J2270; J2405; J2550; J7040

== ENCOUNTER 2018-03-27 20:07 | Emergency (ER) | payer BC, MEDICAID ==
[2018-03-27] MEDS ORDERED: Ketorolac 30 MG/ML SDV IVPUSH ONE (20:11)
[2018-03-27] MEDS ORDERED: Ondansetron 4 MG/2 ML SDV IVPUSH ONE (20:11)
[2018-03-27] MEDS ORDERED: Sodium Chloride 0.9% 1,000 ML IV ONE (20:11)
--- NOTE | 2018-03-27 20:24 | EDM.PDOC ---
ED HPI GENERAL MEDICAL PROBLEM - General Chief Complaint: Abdominal Pain Stated Complaint: GALLBLADDER ATTACK Time Seen by Provider: 03/27/18 20:10 Source of Information: Reports: Patient History Limitations: Reports: No Limitations - History of Present Illness INITIAL COMMENTS - FREE TEXT/NARRATIVE: HISTORY AND PHYSICAL: History of present illness: Patient is a 23-year-old female who presents to the emergency room today with complaints of right upper quadrant pain, nausea and vomiting 2 days. She states she has a history of "bad gallbladder" which she was scheduled to have surgery in September 2017. She has been seen in our emergency room previous for similar complaints. Reports she has had surgery scheduled, but events occurred which caused her to have to cancel. Review of systems: As per history of present illness and below otherwise all systems reviewed and negative. Past medical history: As per history of present illness and as reviewed below otherwise noncontributory. Surgical history: As per history of present illness and as reviewed below otherwise noncontributory. Social history: No reported history of drug or alcohol abuse. Family history: As per history of present illness and as reviewed below otherwise noncontributory. Physical exam: General: Well-developed and well-nourished 23-year-old female. Alert and oriented. Nontoxic appearing and in no acute distress. HEENT: Atraumatic, normocephalic, pupils equal and reactive bilaterally, negative for conjunctival pallor or scleral icterus, mucous membranes moist, throat clear, neck supple, nontender, trachea midline. No drooling or trismus noted. No meningeal signs Lungs: Clear to auscultation, breath sounds equal bilaterally, chest nontender. Heart: S1S2, regular rate and rhythm without overt murmur Abdomen: Soft, nondistended, right upper quadrant tenderness. Negative for masses or hepatosplenomegaly. Negative for costovertebral tenderness. Pelvis: Stable nontender. Genitourinary: Deferred. Rectal: Deferred. Skin: Intact, warm, dry. No lesions or rashes noted. Extremities: Atraumatic, negative for cords or calf pain. Neurovascular unremarkable. Neuro: Awake, alert, oriented. Cranial nerves II through XII unremarkable. Cerebellum unremarkable. Motor and sensory unremarkable throughout. Exam nonfocal. Notes: Patient states that this abdominal pain is not new, although she has not had a "attack" in the past several months. She is agreeable to doing lab work at this time. She declines a CT of the abdomen and pelvis at this time. IV fluids, Toradol and Zofran will be given until lab results have returned. Labs were reviewed with the patient. We did discuss that she needs to follow-up with her general surgeon for further evaluation and management of cold a cystitis. I will give her a limited amount of [place] one tab every 4-6 hours as needed. Encouraged her to use the Zofran as needed for nausea. Medication education was discussed as she should not take this medication while driving or needing to be functioning outside of the house are caring for her child. Referral will be placed into the general surgeon for follow-up. Patient is aware of care plan and is agreeable. She denies any further questions or concerns at this time. Diagnostics: CBC, CMP, amylase, lipase, UA, urine Therapeutics: IV fluid, Zofran, Toradol Impression: Right upper quadrant pain Plan: 1. Please avoid high fat, processed foods, refined carbs, and tobacco/alcohol. 2. Tylenol and/or ibuprofen as needed for pain management. Workup as needed for moderate to severe pain. This medication may cause drowsiness so do not take it will driving her needing to be functioning outside of the house. Please do not take this medication when caring for your infant child. 3. Referral to have you follow up with the general surgeon has been made (need to set up/schedule surgery). Please see them or your PCP in the next 1-2 days. Return to the ED as needed as discussed. Definitive disposition and diagnosis as appropriate pending reevaluation and review of above. Onset: Today Duration: Day(s):, Chronic Location: Reports: Abdomen Abdomen Pain Score (Numeric/FACES): 8 - Related Data Allergies Allergy/AdvReac Type Severity Reaction Status Date / Time dipti Allergy Other Verified 09/21/17 17:05 sulfamethoxazole Allergy Other Verified 09/21/17 17:05 [From Bactrim] trimethoprim [From Bactrim] Allergy Other Verified 09/21/17 17:05 Home Meds: Home Meds Vilazodone Hydrochloride [Viibryd] 20 mg PO DAILY 03/27/18 [History] Past Medical History - Past Health History Medical/Surgical History: Denies Medical/Surgical History HEENT History: Reports: Impaired Vision Cardiovascular History: Reports: None Respiratory History: Reports: Asthma Gastrointestinal History: Reports: Chronic Constipation, Irritable Bowel Syndrome Genitourinary History: Reports: UTI, Recurrent 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: Neurological History: Reports: Concussion, Migraines Psychiatric History: Reports: Anxiety, Depression Endocrine/Metabolic History: Reports: None Hematologic History: Reports: None - Infectious Disease History Infectious Disease History: Reports: Chicken Pox, Other (See Below) Other Infectious Disease History: hospitalized as a [age] year old for unkown strain of hepatitis Social & Family History - Family History Family Medical History: Noncontributory Cardiac: Reports: Hypertension, [place], Stent : Reports: Diabetic Nephropathy Neurological: Reports: CVA, Neuropathy, Diabetic Psychiatric: Reports: ADD, ADHD, Anxiety, Bipolar, Depression, Emotional Problems, Learning Disability, Mood Swings, Panic Attack Endocrine/Metabolic: Reports: Diabetes, Type I Oncologic: Reports: Colon, Leukemia - Caffeine Use Caffeine Use: Reports: Energy Drinks, Soda ED ROS GENERAL - Review of Systems Review Of Systems: ROS reveals no pertinent complaints other than HPI. ED EXAM, GI/ABD - Physical Exam Exam: See Below (See dictation) Course - Vital Signs Last Recorded V/S: Last Vital Signs Temp 97.8 F 03/27/18 20:32 Pulse 109 H 03/27/18 20:32 Resp 16 03/27/18 20:32 BP 121/82 03/27/18 20:32 Pulse Ox 97 03/27/18 20:32 - Orders/Labs/Meds Orders: Active Orders 24 hr Category Date Time Status HCG QUALITATIVE,URINE [URCHEM] Stat Lab 03/27/18 20:37 Ordered UA W/MICROSCOPIC [URIN] Stat Lab 03/27/18 20:37 Ordered Labs: Laboratory Tests 03/27/18 03/27/18 03/27/18 Range/Units 20:37 20:37 20:43 WBC 11.74 H (4.0-11.0) K/uL RBC 5.10 (4.30-5.90) M/uL Hgb 12.5 (12.0-16.0) g/dL Hct 39.3 (36.0-46.0) % MCV 77.1 L (80.0-98.0) fL MCH 24.5 L (27.0-32.0) pg MCHC 31.8 (31.0-37.0) g/dL RDW Std Deviation 42.4 (28.0-62.0) fl RDW Coeff of Sean 15 (11.0-15.0) % Plt Count 262 (150-400) K/uL MPV 10.10 (7.40-12.00) fL Neut % (Auto) 83.3 H (48.0-80.0) % Lymph % (Auto) 10.7 L (16.0-40.0) % [place] % (Auto) 5.5 (0.0-15.0) % Eos % (Auto) 0.3 (0.0-7.0) % Baso % (Auto) 0.2 (0.0-1.5) % Neut # (Auto) 9.8 H (1.4-5.7) K/uL Lymph # (Auto) 1.3 (0.6-2.4) K/uL [place] # (Auto) 0.6 (0.0-0.8) K/uL Eos # (Auto) 0.0 (0.0-0.7) K/uL Baso # (Auto) 0.0 (0.0-0.1) K/uL Nucleated RBC % 0.0 /100WBC Nucleated RBCs # 0 K/uL Sodium (136-145) mmol/L Potassium (3.5-5.1) mmol/L Chloride (98-107) mmol/L Carbon Dioxide (21.0-32.0) mmol/L BUN (7.0-18.0) mg/dL Creatinine (0.6-1.0) mg/dL Est Cr Clr Drug Dosing mL/min Estimated GFR (MDRD) ml/min Glucose (74-106) mg/dL Calcium (8.5-10.1) mg/dL Total Bilirubin (0.2-1.0) mg/dL AST (15-37) IU/L ALT (14-63) IU/L Alkaline Phosphatase (46-116) U/L Total Protein (6.4-8.2) g/dL Albumin (3.4-5.0) g/dL Globulin (2.0-3.5) g/dL Albumin/Globulin Ratio (1.3-2.8) Amylase (25-115) U/L Lipase (73-393) U/L Urine Color YELLOW Urine Appearance CLEAR Urine pH 6.0 (5.0-8.0) Ur Specific [place] >= 1.030 (1.001-1.035) Urine Protein NEGATIVE (NEGATIVE) mg/dL Urine Glucose (UA) NEGATIVE (NEGATIVE) mg/dL Urine Ketones NEGATIVE (NEGATIVE) mg/dL Urine Occult Blood LARGE H (NEGATIVE) Urine Nitrite NEGATIVE (NEGATIVE) Urine Bilirubin NEGATIVE (NEGATIVE) Urine Urobilinogen 0.2 (<2.0) EU/dL Ur Leukocyte Esterase NEGATIVE (NEGATIVE) Urine RBC 3-5 (0-2/HPF) Urine WBC 0-1 (0-5/HPF) Ur Epithelial Cells RARE (NONE-FEW) Urine Bacteria RARE (NEGATIVE) Urine HCG, Qual NEGATIVE (NEGATIVE) 03/27/18 Range/Units 20:43 WBC (4.0-11.0) K/uL RBC (4.30-5.90) M/uL Hgb (12.0-16.0) g/dL Hct (36.0-46.0) % MCV (80.0-98.0) fL MCH (27.0-32.0) pg MCHC (31.0-37.0) g/dL RDW Std Deviation (28.0-62.0) fl RDW Coeff of Sean (11.0-15.0) % Plt Count (150-400) K/uL MPV (7.40-12.00) fL Neut % (Auto) (48.0-80.0) % Lymph % (Auto) (16.0-40.0) % [place] % (Auto) (0.0-15.0) % Eos % (Auto) (0.0-7.0) % Baso % (Auto) (0.0-1.5) % Neut # (Auto) (1.4-5.7) K/uL Lymph # (Auto) (0.6-2.4) K/uL [place] # (Auto) (0.0-0.8) K/uL Eos # (Auto) (0.0-0.7) K/uL Baso # (Auto) (0.0-0.1) K/uL Nucleated RBC % /100WBC Nucleated RBCs # K/uL Sodium 141 (136-145) mmol/L Potassium 3.8 (3.5-5.1) mmol/L Chloride 105 (98-107) mmol/L Carbon Dioxide 24.4 (21.0-32.0) mmol/L BUN 12 (7.0-18.0) mg/dL Creatinine 0.9 (0.6-1.0) mg/dL Est Cr Clr Drug Dosing 99.74 mL/min Estimated GFR (MDRD) > 60.0 ml/min Glucose 115 H (74-106) mg/dL Calcium 8.8 (8.5-10.1) mg/dL Total Bilirubin 0.6 (0.2-1.0) mg/dL AST 16 (15-37) IU/L ALT 33 (14-63) IU/L Alkaline Phosphatase 98 (46-116) U/L Total Protein 7.5 (6.4-8.2) g/dL Albumin 3.9 (3.4-5.0) g/dL Globulin 3.6 H (2.0-3.5) g/dL Albumin/Globulin Ratio 1.1 L (1.3-2.8) Amylase 28 (25-115) U/L Lipase 66 L (73-393) U/L Urine Color Urine Appearance Urine pH (5.0-8.0) Ur Specific [place] (1.001-1.035) Urine Protein (NEGATIVE) mg/dL Urine Glucose (UA) (NEGATIVE) mg/dL Urine Ketones (NEGATIVE) mg/dL Urine Occult Blood (NEGATIVE) Urine Nitrite (NEGATIVE) Urine Bilirubin (NEGATIVE) Urine Urobilinogen (<2.0) EU/dL Ur Leukocyte Esterase (NEGATIVE) Urine RBC (0-2/HPF) Urine WBC (0-5/HPF) Ur Epithelial Cells (NONE-FEW) Urine Bacteria (NEGATIVE) Urine HCG, Qual (NEGATIVE) Meds: Medications Discontinued Medications Generic Name Dose Route Start Last Admin Trade Name Freq PRN Reason Stop Dose Admin Sodium Chloride 1,000 mls @ 999 mls/hr 03/27/18 20:11 03/27/18 20:51 Normal Saline IV 03/27/18 21:11 999 mls/hr STAT ONE Administration Ketorolac Tromethamine 30 mg 03/27/18 20:11 03/27/18 20:54 Toradol IVPUSH 03/27/18 20:12 30 mg ONETIME ONE Administration Ondansetron HCl 4 mg 03/27/18 20:11 03/27/18 20:51 Zofran IVPUSH 03/27/18 20:12 4 mg ONETIME ONE Administration Departure - Departure Time of Disposition: 21:30 Disposition: Home, Self-Care 01 Clinical Impression: Right upper quadrant pain - Discharge Information Referrals: PCP,None [Primary Care Provider] - Forms: ED Department Discharge Additional Instructions: The following information is given to patients seen in the emergency department who are being discharged to home. This information is to outline your options for follow-up care. We provide all patients seen in our emergency department with a follow-up referral. The need for follow-up, as well as the timing and circumstances, are variable depending upon the specifics of your emergency department visit. If you don't have a primary care physician on staff, we will provide you with a referral. We always advise you to contact your personal physician following an emergency department visit to inform them of the circumstance of the visit and for follow-up with them and/or the need for any referrals to a consulting specialist. The emergency department will also refer you to a specialist when appropriate. This referral assures that you have the opportunity for follow-up care with a specialist. All of these measure are taken in an effort to provide you with optimal care, which includes your follow-up. Under all circumstances we always encourage you to contact your private physician who remains a resource for coordinating your care. When calling for follow-up care, please make the office aware that this follow-up is from your recent emergency room visit. If for any reason you are refused follow-up, please contact the [facility] Emergency Department at and asked to speak to the emergency department charge nurse. [facility] [address] [place] [id number] 1. Please avoid high fat, processed foods, refined carbs, and tobacco/alcohol. 2. Tylenol and/or ibuprofen as needed for pain management. Workup as needed for moderate to severe pain. This medication may cause drowsiness so do not take it will driving her needing to be functioning outside of the house. Please do not take this medication when caring for your child. 3. Referral to have you follow up with the general surgeon has been made (need to set up/schedule surgery). Please see them or your PCP in the next 1-2 days. Return to the ED as needed as discussed. - My Orders Last 24 Hours: My Active Orders 03/27/18 20:37 HCG QUALITATIVE,URINE [URCHEM] Stat UA W/MICROSCOPIC [URIN] Stat - Assessment/Plan Last 24 Hours: My Active Orders 03/27/18 20:37 HCG QUALITATIVE,URINE [URCHEM] Stat UA W/MICROSCOPIC [URIN] Stat
[2018-03-27 21:22] LABS: CHLORIDE,CL 105 mmol/L (98-107); SODIUM,NA 141 mmol/L (136-145)
[2018-03-27 21:49] VITALS: BP 110/44
== END 2018-03-27 21:46 | disposition home or self-care (01) ==
LOC: MW.ED 20:07
DX: R10.11 Right upper quadrant pain (principal); Z91.018 Allergy to other foods; Z88.2 Allergy status to sulfonamides; Z79.899 Other long term (current) drug therapy
CPT/HCPCS: 80053; 81001; 81025; 82150; 83690; 85025; 96361; 96374; 96375; 99284; J1885; J2405; J7040; 99283

== ENCOUNTER 2018-07-02 00:13 | Emergency (ER) | payer BC, MEDICAID ==
[2018-07-02] MEDS ORDERED: Sodium Chloride 0.9% 1,000 ML IV ONE (00:28)
[2018-07-02] MEDS ORDERED: Ondansetron 4 MG/2 ML SDV IVPUSH ONE (00:28)
[2018-07-02] MEDS ORDERED: Ketorolac 30 MG/ML SDV IVPUSH ONE (00:28)
--- NOTE | 2018-07-02 00:34 | EDM.PDOC ---
ED HPI GENERAL MEDICAL PROBLEM - General Chief Complaint: Abdominal Pain Stated Complaint: GALLBLADDER PAIN Time Seen by Provider: 07/02/18 00:28 - History of Present Illness INITIAL COMMENTS - FREE TEXT/NARRATIVE: HISTORY AND PHYSICAL: History of present illness: Patient is 23-year-old white female with history of biliary colic presents with a concern of upper abdominal pain. She is a trouble scheduling gallbladder surgery but is still working on that there's been no vomiting fever chills or other complaints. Review of systems: As per history of present illness and below otherwise all systems reviewed and negative. Past medical history: As per history of present illness and as reviewed below otherwise noncontributory. Surgical history: As per history of present illness and as reviewed below otherwise noncontributory. Social history: No reported history of drug or alcohol abuse. Family history: As per history of present illness and as reviewed below otherwise noncontributory. Physical exam: HEENT: Atraumatic, normocephalic, pupils reactive, negative for conjunctival pallor or scleral icterus, mucous membranes moist, throat clear, neck supple, nontender, trachea midline. Lungs: Clear to auscultation, breath sounds equal bilaterally, chest nontender. Heart: S1S2, regular, negative for clicks, rubs, or JVD. Abdomen: Soft, nondistended, no localized tenderness no rebound no guarding. Negative for masses or hepatosplenomegaly. Negative for costovertebral tenderness. Pelvis: Stable nontender. Genitourinary: Deferred. Rectal: Deferred. Extremities: Atraumatic, negative for cords or calf pain. Neurovascular unremarkable. Neuro: Awake, alert, oriented. Cranial nerves II through XII unremarkable. Cerebellum unremarkable. Motor and sensory unremarkable throughout. Exam nonfocal. Diagnostics: CBC CMP lipase hCG Therapeutics: Saline 1 L bolus Toradol 30 mg IV Zofran 4 mg IV Impression: #1 biliary colic Definitive disposition and diagnosis as appropriate pending reevaluation and review of above. - Related Data Allergies Allergy/AdvReac Type Severity Reaction Status Date / Time dipti Allergy Other Verified 07/02/18 00:30 sulfamethoxazole Allergy Other Verified 07/02/18 00:30 [From Bactrim] trimethoprim [From Bactrim] Allergy Other Verified 07/02/18 00:30 Home Meds: Home Meds Vilazodone Hydrochloride [Viibryd] 20 mg PO DAILY 06/18/18 [History] Pantoprazole [ProTONIX] 40 mg PO DAILY 07/02/18 [History] Past Medical History - Past Health History Medical/Surgical History: Denies Medical/Surgical History HEENT History: Reports: Impaired Vision Cardiovascular History: Reports: None Respiratory History: Reports: Asthma Gastrointestinal History: Reports: Chronic Constipation, Irritable Bowel Syndrome Genitourinary History: Reports: UTI, Recurrent 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: Neurological History: Reports: Concussion, Migraines Psychiatric History: Reports: Anxiety, Depression Endocrine/Metabolic History: Reports: None Hematologic History: Reports: None - Infectious Disease History Infectious Disease History: Reports: Chicken Pox, Other (See Below) Other Infectious Disease History: hospitalized as a [age] year old for unkown strain of hepatitis Social & Family History - Family History Family Medical History: Noncontributory Cardiac: Reports: Hypertension, [place], Stent : Reports: Diabetic Nephropathy Neurological: Reports: CVA, Neuropathy, Diabetic Psychiatric: Reports: ADD, ADHD, Anxiety, Bipolar, Depression, Emotional Problems, Learning Disability, Mood Swings, Panic Attack Endocrine/Metabolic: Reports: Diabetes, Type I Oncologic: Reports: Colon, Leukemia - Caffeine Use Caffeine Use: Reports: Energy Drinks, Soda ED ROS GENERAL - Review of Systems Review Of Systems: ROS reveals no pertinent complaints other than HPI. ED EXAM, GENERAL - Physical Exam Exam: See Below (See dictation) Course - Orders/Labs/Meds Orders: Active Orders 24 hr Category Date Time Status CBC WITH AUTO DIFF [HEME] Stat Lab 07/02/18 00:28 Ordered COMPREHENSIVE METABOLIC PN,CMP [CHEM] Stat Lab 07/02/18 00:28 Ordered HCG QUALITATIVE,SERUM [CHEM] Stat Lab 07/02/18 00:28 Ordered LIPASE [CHEM] Stat Lab 07/02/18 00:28 Ordered UA W/MICROSCOPIC [URIN] Stat Lab 07/02/18 00:28 Ordered Sodium Chloride 0.9% [Normal Saline] 1,000 ml Med 07/02/18 00:28 Active IV STAT Medication Orders Sodium Chloride (Normal Saline) 1,000 mls @ 999 mls/hr IV STAT ONE Stop: 07/02/18 01:28 Meds: Medications Generic Name Dose Route Start Last Admin Trade Name Freq PRN Reason Stop Dose Admin Sodium Chloride 1,000 mls @ 999 mls/hr 07/02/18 00:28 Normal Saline IV 07/02/18 01:28 STAT ONE Discontinued Medications Generic Name Dose Route Start Last Admin Trade Name Fabiana PRN Reason Stop Dose Admin Ketorolac Tromethamine 30 mg 07/02/18 00:28 Toradol IVPUSH 07/02/18 00:29 ONETIME ONE Ondansetron HCl 4 mg 07/02/18 00:28 Zofran IVPUSH 07/02/18 00:29 ONETIME ONE Departure - Departure Time of Disposition: 00:33 Disposition: Home, Self-Care 01 Condition: Good Clinical Impression: Biliary colic - Discharge Information *PRESCRIPTION DRUG MONITORING PROGRAM REVIEWED*: Not Applicable *COPY OF PRESCRIPTION DRUG MONITORING REPORT IN PATIENT CHRISTA: Not Applicable Referrals: Zonia Kwok DO [Primary Care Provider] - Additional Instructions: The following information is given to patients seen in the emergency department who are being discharged to home. This information is to outline your options for follow-up care. We provide all patients seen in our emergency department with a follow-up referral. The need for follow-up, as well as the timing and circumstances, are variable depending upon the specifics of your emergency department visit. If you don't have a primary care physician on staff, we will provide you with a referral. We always advise you to contact your personal physician following an emergency department visit to inform them of the circumstance of the visit and for follow-up with them and/or the need for any referrals to a consulting specialist. The emergency department will also refer you to a specialist when appropriate. This referral assures that you have the opportunity for followup care with a specialist. All of these measure are taken in an effort to provide you with optimal care, which includes your followup. Under all circumstances we always encourage you to contact your private physician who remains a resource for coordinating your care. When calling for followup care, please make the office aware that this follow-up is from your recent emergency room visit. If for any reason you are refused follow-up, please contact the [facility] emergency department at and asked to speak to the emergency department charge nurse. [facility] Professional Building [address] [place] [address], [address] [place] [address] Diet as discussed continue current medications called to schedule appointment return as needed as discussed - My Orders Last 24 Hours: My Active Orders 07/02/18 00:28 CBC WITH AUTO DIFF [HEME] Stat COMPREHENSIVE METABOLIC PN,CMP [CHEM] Stat HCG QUALITATIVE,SERUM [CHEM] Stat LIPASE [CHEM] Stat UA W/MICROSCOPIC [URIN] Stat Sodium Chloride 0.9% [Normal Saline] 1,000 ml IV STAT - Assessment/Plan Last 24 Hours: My Active Orders 07/02/18 00:28 CBC WITH AUTO DIFF [HEME] Stat COMPREHENSIVE METABOLIC PN,CMP [CHEM] Stat HCG QUALITATIVE,SERUM [CHEM] Stat LIPASE [CHEM] Stat UA W/MICROSCOPIC [URIN] Stat Sodium Chloride 0.9% [Normal Saline] 1,000 ml IV STAT
[2018-07-02 01:19] LABS: CHLORIDE,CL 107 mmol/L (98-107); SODIUM,NA 141 mmol/L (136-145)
[2018-07-02 02:01] VITALS: BP 131/92
== END 2018-07-02 02:00 | disposition home or self-care (01) ==
LOC: MW.ED 00:13
DX: K80.50 Calculus of bile duct without cholangitis or cholecystitis without obstruction (principal); Z91.018 Allergy to other foods; Z88.2 Allergy status to sulfonamides; Z79.899 Other long term (current) drug therapy
CPT/HCPCS: 80053; 81001; 83690; 84703; 85025; 96361; 96374; 96375; 99284; J1885; J2405; J7040

== ENCOUNTER 2020-07-24 15:00 | Emergency (ER) | payer BC, MEDICAID ==
[2020-07-24 15:15] VITALS: PULSE 88
--- NOTE | 2020-07-24 15:41 | EDM.PDOC ---
ED HPI GENERAL MEDICAL PROBLEM - General Chief Complaint: Respiratory Problem Stated Complaint: POSITIVE COVID COMPLICATIONS Time Seen by Provider: 07/24/20 15:25 - History of Present Illness INITIAL COMMENTS - FREE TEXT/NARRATIVE: History of present illness: Patient presents with difficulty breathing she is COVID positive. Patient states it feels like she cannot catch her breath it is noted that the patient has a respiratory rate of about 6 times a minute relaxing comfortably in the chair playing on her phone and has 99% oxygen saturation on room air. She denies any cough she has had congestion and some difficulty breathing she was diagnosed with COVID on Tuesday the doctors who she saw on Tuesday for the same illness had called this a sinus infection and put her on azithromycin and an inhaler with steroids. She has been using the steroids and the antibiotics she says this is not making her feel better. No other medical problems. Review of systems: As per history of present illness and below otherwise all systems reviewed and negative. Past medical history: As per history of present illness and as reviewed below otherwise noncontributory. Surgical history: As per history of present illness and as reviewed below otherwise noncontributory. Social history: No reported history of drug or alcohol abuse. Family history: As per history of present illness and as reviewed below otherwise noncontributor y. Physical exam: HEENT: Atraumatic, normocephalic, pupils reactive, negative for conjunctival pallor or scleral icterus, mucous membranes moist, throat clear, neck supple, nontender, trachea midline. Lungs: Clear to auscultation, breath sounds equal bilaterally, chest nontender. Normal respiratory rate no respiratory distress no retractions are noted Heart: S1S2, regular, negative for clicks, rubs, or JVD. Abdomen: Soft, nondistended, nontender. Negative for masses or hepatosplenomegaly. Negative for costovertebral tenderness. Pelvis: Stable nontender. Genitourinary: Deferred. Rectal: Deferred. Extremities: Atraumatic, negative for cords or calf pain. Neurovascular unremarkable. Neuro: Awake, alert, oriented. Cranial nerves II through XII unremarkable. Cerebellum unremarkable. Motor and sensory unremarkable throughout. Exam nonfocal. Diagnostics: [] Therapeutics: [] Impression: COVID-19 [] Plan: Patient insists that she cannot breathe I will obtain a chest x-ray to rule out any other pathology she has vital signs that are stable. [] Definitive disposition and diagnosis as appropriate pending reevaluation and review of above. Chest Pain Score (Numeric/FACES): 8 - Related Data Allergies Allergy/AdvReac Type Severity Reaction Status Date / Time dipti Allergy Other Verified 08/16/18 14:18 Sulfa (Sulfonamide Allergy Cannot Verified 07/24/20 15:07 Antibiotics) Remember sulfamethoxazole Allergy Other Verified 08/16/18 14:18 [From Bactrim] trimethoprim [From Bactrim] Allergy Other Verified 08/16/18 14:18 Home Meds: Home Meds Pantoprazole [ProTONIX] 40 mg PO DAILY 07/02/18 [History] Desvenlafaxine Succinate [Desvenlafaxine Succinate ER] 50 mg PO DAILY 08/16/18 [History] Methylphenidate HCl 15 mg PO DAILY 07/24/20 [History] predniSONE 20 mg PO DAILY 07/24/20 [History] Past Medical History - Past Health History Medical/Surgical History: Denies Medical/Surgical History HEENT History: Reports: Impaired Vision Cardiovascular History: Reports: None Respiratory History: Reports: Asthma Gastrointestinal History: Reports: Chronic Constipation, Irritable Bowel Syndrome Genitourinary History: Reports: UTI, Recurrent MEDICAL DOSIMETRIST History: Reports: Musculoskeletal History: Reports: None Neurological History: Reports: Concussion, Migraines Psychiatric History: Reports: Anxiety, Depression Endocrine/Metabolic History: Reports: None Hematologic History: Reports: None Immunologic History: Reports: None - Infectious Disease History Infectious Disease History: Reports: None Other Infectious Disease History: hospitalized as a [age] year old for unkown strain of hepatitis Social & Family History - Family History Family Medical History: Noncontributory Cardiac: Reports: Hypertension, [place], Stent : Reports: Diabetic Nephropathy Neurological: Reports: CVA, Neuropathy, Diabetic Psychiatric: Reports: ADD, ADHD, Anxiety, Bipolar, Depression, Emotional Problems, Learning Disability, Mood Swings, Panic Attack Endocrine/Metabolic: Reports: Diabetes, Type I Oncologic: Reports: Colon, Leukemia - Tobacco Use Tobacco Use Status *Q: Never Tobacco User - Caffeine Use Caffeine Use: Reports: None - Recreational Drug Use Recreational Drug Use: No ED ROS GENERAL - Review of Systems Review Of Systems: See Below ED EXAM, GENERAL - Physical Exam Exam: See Below Course - Vital Signs Text/Narrative:: One-view portable chest read interpreted by me no acute cardiopulmonary pathology is evident. Be reassured discharged home she is to stay at home in isolation unless she develops severe respiratory distress. Last Recorded V/S: Last Vital Signs Temp 36.1 C 07/24/20 15:10 Pulse 88 07/24/20 15:10 Resp 16 07/24/20 15:10 BP 134/87 07/24/20 15:10 Pulse Ox 97 07/24/20 15:10 - Orders/Labs/Meds Orders: Active Orders 24 hr Category Date Time Status Chest 1V Frontal [CR] Stat Exams 07/24/20 15:38 Taken Departure - Departure Time of Disposition: 16:03 Disposition: Home, Self-Care 01 Condition: Good Clinical Impression: COVID-19, Dyspnea - Discharge Information *PRESCRIPTION DRUG MONITORING PROGRAM REVIEWED*: Not Applicable *COPY OF PRESCRIPTION DRUG MONITORING REPORT IN PATIENT CHRISTA: Not Applicable Instructions: COVID-19 Frequently Asked Questions, Shortness of Breath, Adult, [id number], Prevent the Spread of COVID-19 if You Are Sick - [facility] Referrals: Jose Ramon Juares MD [Primary Care Provider] - Forms: ED Department Discharge Additional Instructions: The following information is given to patients seen in the emergency department who are being discharged to home. This information is to outline your options for follow-up care. We provide all patients seen in our emergency department with a follow-up referral. The need for follow-up, as well as the timing and circumstances, are variable depending upon the specifics of your emergency department visit. If you don't have a primary care physician on staff, we will provide you with a referral. We always advise you to contact your personal physician following an emergency department visit to inform them of the circumstance of the visit and for follow-up with them and/or the need for any referrals to a consulting specialist. The emergency department will also refer you to a specialist when appropriate. This referral assures that you have the opportunity for follow-up care with a specialist. All of these measure are taken in an effort to provide you with optimal care, which includes your follow-up. Under all circumstances we always encourage you to contact your private physician who remains a resource for coordinating your care. When calling for follow-up care, please make the office aware that this follow-up is from your recent emergency room visit. If for any reason you are refused follow-up, please contact the [facility] Emergency Department at and asked to speak to the emergency department charge nurse. [facility] - [facility] [address] [place] [id number] [address] Sepsis Event Note (ED) - Evaluation Sepsis Screening Result: No Definite Risk - Focused Exam Vital Signs: Vital Signs Temp Pulse Resp BP Pulse Ox 07/24/20 15:10 36.1 C 88 16 134/87 97 - My Orders Last 24 Hours: My Active Orders 07/24/20 15:38 Chest 1V Frontal [CR] Stat - Assessment/Plan Last 24 Hours: My Active Orders 07/24/20 15:38 Chest 1V Frontal [CR] Stat
[2020-07-24 16:21] VITALS: BP 131/85
--- NOTE | 2020-07-24 16:35 | CR ---
Indication: COVID-19 shortness of breath Technique: Chest 1 view Comparison: None Findings/Impression: Cardiovascular and mediastinum: Heart size and vasculature are normal in caliber and appearance. Mediastinum is within normal limits. Lungs and pleural space: Lungs are clear. No sign of infiltrate or mass. No sign of pleural effusion. No pneumothorax. Bones and soft tissues: No significant findings. Dictated by Erin Salas MD @ Jul 24 2020 4:17PM Signed by Dr. Erin Salas @ Jul 24 2020 4:32PM
== END 2020-07-24 16:19 | disposition home or self-care (01) ==
LOC: MW.ED 15:00
DX: U07.1 COVID-19 (principal); J45.909 Unspecified asthma, uncomplicated; F41.9 Anxiety disorder, unspecified; F32.9 Major depressive disorder, single episode, unspecified; Z91.018 Allergy to other foods; Z88.2 Allergy status to sulfonamides; Z88.1 Allergy status to other antibiotic agents; Z79.899 Other long term (current) drug therapy
CPT/HCPCS: 71045; 71045-26; 99284-25